=== PATIENT | female | born 2000 | race African-American/Black ===

== ENCOUNTER 2019-06-04 15:46 | Emergency (ER) | payer SELFPAY ==
[~2019-06-04] VITALS: Ht 167.6 cm; Wt 86.6 kg
[2019-06-04 15:54] VITALS: BP 149/83
--- NOTE | 2019-06-04 16:17 | NUR ---
Patient discharged to home in stable condition. Written and verbal after care instructions given. Patient verbalizes understanding of instruction.
== END 2019-06-04 16:17 | disposition home or self-care (01) ==
LOC: ER 15:52
DX: J02.0 Streptococcal pharyngitis (principal)

== ENCOUNTER 2019-12-04 15:27 | Emergency (ER) | payer SELFPAY ==
[~2019-12-04] VITALS: Ht 165.1 cm; Wt 81.6 kg
[2019-12-04 15:30] VITALS: BP 110/82
--- NOTE | 2019-12-04 17:01 | NUR ---
Patient discharged to home in stable condition. Written and verbal after care instructions given. Patient verbalizes understanding of instruction.
== END 2019-12-04 17:01 | disposition home or self-care (01) ==
LOC: ER 15:29
DX: J02.8 Acute pharyngitis due to other specified organisms (principal); B97.89 Other viral agents as the cause of diseases classified elsewhere
CPT/HCPCS: 86403-TC; 87070-TC